=== PATIENT | female | born 1960 | race Caucasian/White ===

== ENCOUNTER 2019-10-13 00:17 | Outpatient (CLI) | payer BC, SELFPAY ==
[2019-10-13 18:58] LABS: SARS-CoV-2 RNA PCR Negative
== END 2019-10-13 00:18 | disposition home or self-care (01) ==
LOC: ANHCOVIDDT 00:18
PROVIDERS: PCP Family Medicine; Visit Provider Otolaryngology
DX: Z01.818 Encounter for other preprocedural examination (principal); Z11.59 Encounter for screening for other viral diseases
CPT/HCPCS: 87635; C9803; U0003

== ENCOUNTER 2019-10-15 05:27 | Day surgery (SDC) | payer BC, SELFPAY ==
[2019-10-09 10:20] VITALS: BMI 29.2
--- NOTE | 2019-10-14 09:57 | PM.HPGS ---
History of Present Illness History of Present Illness Consent: Risks, benefits, and alternatives have been discussed and questions answered. Patient agrees to proceed with procedure. Chief complaint: mucocele inside lower lip Narrative: Rebeca Ivory is a 58 year old female Review of Systems Review of Systems: Narrative: Review of systems is all unremarkable chest heart lungs extremities all normal ENT shows a small cyst in the lower lip All systems reviewed & are unremarkable except as noted in HPI and below PMFSH Social History Social History Smoking status: Never smoker Tobacco type: cigarettes Second hand tobacco smoke exposure: No Alcohol intake: never Substance use: never Substance use type: does not use Gender identity (if verbalized by the patient): Female Meds Home Medications and Allergies Home Medications Medication Instructions Recorded Confirmed Type levothyroxine 150 mcg tablet 150 mcg PO QAM #90 tablet 08/25/19 10/09/19 Rx sertraline 100 mg tablet 100 mg PO DAILY #90 tablet 08/25/19 10/09/19 Rx famotidine 40 mg tablet 40 mg PO DAILY 09/23/19 10/09/19 History Allergies Allergy/AdvReac Type Severity Reaction Status Date / Time No Known Allergies Allergy Verified 10/09/19 10:21
--- NOTE | 2019-10-15 06:21 | WPDHPUPDATE1 ---
History and Physical Update Update Date/Time: 10/15/19 06:21 History and Physical has been reviewed, including an updated exam of the patient. There are NO changes in the patient's condition. Risks, benefits, and alternatives have been discussed and questions answered. Patient agrees to proceed with procedure.
[2019-10-15 06:37] VITALS: BP 98/57; PULSE 53; RESP 16; O2SAT 97
[2019-10-15 07:29] VITALS: BP 109/72; PULSE 66; RESP 16; O2SAT 95
[2019-10-15 07:35] VITALS: BP 103/69; PULSE 69; RESP 15; O2SAT 94
[2019-10-15] MEDS: LIDO 1%/EPINEPHRINE 1:100,000 20 ML VIAL INFILTRATE (07:38)
--- NOTE | 2019-10-15 07:40 | PM.PROC ---
Procedure Note - Detailed Date of procedure: 10/15/19 Pre-op diagnosis: mucocele inside lower lip Post-op diagnosis: same Description of procedure: Patient was prepped and draped in fashion general anesthesia injected 1% xylocaine 1-1000 epinephrine elliptical incision made around the prominence of the lower mucocele in the Le lateral aspect of the lower lip was excised hemostasis was obtained electrocautery and closed with interrupted 5 0 chromic Anesthesia: local Surgeon: Asad Knutson MD Estimated blood loss (mL): 5.0 Drains: No Packing: No Pathology: yes Complications: No immediate complications Condition: stable Disposition: same day
[2019-10-15 07:45] VITALS: BP 109/68; PULSE 55; RESP 14
== END 2019-10-15 08:11 | disposition home or self-care (01) ==
PROVIDERS: PCP Family Medicine; Visit Provider Otolaryngology
PROC: (CPT 40810; principal; 2019-10-15 07:30)
DX: K13.79 Other lesions of oral mucosa (principal); K21.9 Gastro-esophageal reflux disease without esophagitis; E03.9 Hypothyroidism, unspecified
CPT/HCPCS: 40812; 88304

== ENCOUNTER 2020-11-19 10:01 | Emergency (ER) | payer BC, SELFPAY ==
--- NOTE | ~2020-11-19 | XR_ITS ---
EXAMINATION: XR chest 2V DATE: 11/19/2020 10:27 INDICATION: Cough TECHNIQUE: PA and lateral views of the chest are obtained. COMPARISON: 11/19/2012 FINDINGS: There are minimal airspace opacities of the left lower lobe. There is no pleural effusion o r pneumothorax. The cardiomediastinal silhouette is normal. There is moderate thoracic spondylosis. IMPRESSION: 1. Left lower lobe airspace opacities, consistent with atelectasis versus pneumonia. Reviewed, dictated and finalized at location A. IMPRESSION: 1. Left lower lobe airspace opacities, consistent with atelectasis versus pneum onia.
--- NOTE | 2020-11-19 10:04 | ED.GENADULT ---
HPI - General Adult General Chief complaint: Upper Respiratory Infection Stated complaint: COUGH Time Seen by Provider: 11/19/20 10:04 Source: patient Mode of arrival: ambulatory Limitations: no limitations History of Present Illness HPI narrative: 59-year-old female patient presents to the [facility] with complaints of a cough since this past Saturday, and 4 days. Patient denies any fevers, sore throat, runny nose, congestion or any other concerning symptoms at this time. Patient states she does feel a little heaviness in the chest. Patient states that her granddaughter was recently diagnosed with RSV on Saturday after she had babysat her on the previous Saturday. Patient states she is fully vaccinated against COVID-19. Denies any history of smoking. Related Data Allergies Allergy/AdvReac Type Severity Reaction Status Date / Time No Known Allergies Allergy Verified 11/19/20 10:07 Review of Systems Review of Systems: Narrative: CONSTITUTIONAL: Denies fever, chills, or sweats. EYES: Denies visual changes, redness, or discharge. ENT: Denies rhinorrhea, congestion, sore throat, or otalgia. CARDIOVASCULAR: Denies chest pain, palpitations, or edema. RESPIRATORY: Positive cough with intermittent dyspnea. Positive chest heaviness GASTROINTESTINAL: Denies abdominal pain, nausea, vomiting, or diarrhea. GENITOURINARY: Denies dysuria or hematuria. SKIN: Denies rash or itching. MUSCULOSKELETAL: Denies back pain, joint pain, or myalgia. NEUROLOGIC: Denies headache, numbness, or weakness. PSYCHIATRIC: Denies anxiety or depression. [facility] Past Medical History Medical History (Updated 11/19/20 @ 11:04 by MERCEDES Pickard) Anxiety Depression GERD without esophagitis Hypothyroidism (acquired) Insomnia Thyroid disease Unspecified osteoarthritis, unspecified site Surgical History Surgical History History of vaginal hysterectomy 2001 Family History Family History Father Family history of malignant neoplasm of brain, Onset Age: 72 Social History Social History Smoking status: Never smoker Tobacco type: cigarettes Second hand tobacco smoke exposure: No Alcohol intake: never Alcohol use details: consumes 2 beers or glasses of wine occasionally Substance use: never Substance use type: does not use Gender identity (if verbalized by the patient): Female Comments At the time of my signature I agree with nursing past medical history, surgical, social, and family history. There is no relevant family history pertinent to the presenting complaint. Exam Narrative: Exam Narrative: GENERAL: Well-appearing, well-nourished, and in no acute distress. HEAD: Normocephalic, atraumatic. EYES: PERRLA and EOMI. ENT: Nares clear, no rhinorrhea or epistaxis. Mucous membranes moist. NECK: Supple. No lymphadenopathy CHEST: Calling has some decreased lung sounds noted to the right lower lobe on auscultation. No respiratory distress. Patient has a continuous cough noted during exam, dry cough noted no production. HEART: Regular rate and rhythm. No murmur heard. Normal peripheral pulses. ABDOMEN: Soft, nontender, nondistended, normal active bowel sounds. EXTREMITIES: Normal range of motion. No edema. SKIN: Warm, dry, no rash. NEURO: No focal deficits. Alert and oriented x3. Course Reevaluation(s) Reevaluation #1: Reevaluated patient notified her that her x-ray does show some atelectasis versus pneumonia to the left lower lobe. We will go ahead and treat her for pneumonia today with a Z-Josesito, albuterol inhaler and oral steroids to help with the coughing. Discussed with patient that her Covid test today is negative however we will send the PCR to the lab just to be certain. Discussed with patient that she can take any Tylenol, ibuprofen as needed for any pain or fevers. B
[2020-11-19 10:06] VITALS: BP 124/76; PULSE 64; RESP 16; TEMP 36.6; O2SAT 99
[2020-11-19] MEDS: ALBUTEROL SULFATE NEB 2.5 MG/3 ML INH INHALATION (10:40)
[2020-11-19] MEDS: IPRATROPIUM BR 0.02% INH SOLN 0.5 MG/2.5 ML VIAL INHALATION (10:40)
[2020-11-21 20:38] LABS: SARS-CoV-2 RNA PCR Negative
== END 2020-11-19 11:20 | disposition home or self-care (01) ==
PROVIDERS: Emergency Provider Nurse Practitioner Family; PCP Family Medicine
DX: J18.9 Pneumonia, unspecified organism (principal); Z20.822 Contact with and (suspected) exposure to COVID-19; F41.9 Anxiety disorder, unspecified; F32.9 Major depressive disorder, single episode, unspecified; K21.9 Gastro-esophageal reflux disease without esophagitis; E03.9 Hypothyroidism, unspecified; M19.90 Unspecified osteoarthritis, unspecified site
CPT/HCPCS: 71046; 87426; 94640; 99213; C9803; G0463; U0003; U0005

== ENCOUNTER 2022-03-14 08:35 | Emergency (ER) | payer OTHER, BC, SELFPAY ==
[2022-03-14 08:56] VITALS: BP 103/69; PULSE 57; RESP 16; TEMP 37.1; O2SAT 97
--- NOTE | 2022-03-14 08:58 | ED.URI ---
HPI - URI/Sore Throat General Chief Complaint: Upper Respiratory Infection Stated Complaint: URI Time Seen by Provider: 03/14/22 08:38 Source: patient Mode of arrival: ambulatory Limitations: no limitations History of Present Illness HPI Narrative: 61-year-old female presents with complaint cough, congestion, sore throat for 4 days. States that she felt like she had fever 1st day of symptoms but did not check her temperature. Denies chest pain and shortness of breath. Denies nausea vomiting diarrhea. Taking NyQuil to treat symptoms. At home COVID test on Saturday that was negative. Is concerned that she did that test too early. Would like another test. Systems reviewed and negative except as noted above. Related Data Allergies Allergy/AdvReac Type Severity Reaction Status Date / Time No Known Allergies Allergy Verified 03/14/22 09:18 Review of Systems Review of Systems: CONSTITUTIONAL: Denies fever, chills, or sweats. EYES: Denies visual changes, redness, or discharge. ENT: Reports rhinorrhea, congestion, sore throat, or otalgia. CARDIOVASCULAR: Denies chest pain, palpitations, or edema. RESPIRATORY: Reports cough. Denies dyspnea. GASTROINTESTINAL: Denies abdominal pain, nausea, vomiting, or diarrhea. GENITOURINARY: Denies dysuria or hematuria. SKIN: Denies rash or itching. MUSCULOSKELETAL: Denies back pain, joint pain, or myalgia. NEUROLOGIC: Denies headache, numbness, or weakness. PSYCHIATRIC: Denies anxiety or depression. All other systems reviewed are negative, except as documented in HPI. [facility] Past Medical History Medical History (Updated 03/14/22 @ 09:28 by Yusra Oden NP) Anxiety Depression GERD without esophagitis Hypothyroidism (acquired) Insomnia Thyroid disease Unspecified osteoarthritis, unspecified site Surgical History Surgical History History of vaginal hysterectomy 2001 Family History Family History Father Family history of malignant neoplasm of brain, Onset Age: 72 Social History Social History Smoking status: Never smoker Tobacco type: cigarettes Second hand tobacco smoke exposure: No Alcohol intake: never Alcohol use details: consumes 2 beers or glasses of wine occasionally Substance use: never Substance use type: does not use Gender identity (if verbalized by the patient): Female Comments At time of signature, agree with nursing past medical, surgical, social and family history. There is no relevant family history pertinent to the presenting complaint. Exam Narrative: GENERAL: This is a well-nourished, well-developed patient, in no apparent distress. HEAD: normocephalic, atraumatic. EYES: PERRL. Sclera clear/white. Vision is grossly intact. EARS: External ears normal, auditory canals clear and without drainage, TMs normal without perforation. Hearing grossly intact. NOSE: External nose normal with clear nasal drainage. No erythema or swelling to nares. THROAT: Mucous membranes moist, posterior pharynx clear. NECK: Neck supple, non-tender without lymphadenopathy, masses or thyromegaly. CARDIOVASCULAR: Regular rate and rhythm without murmurs, gallops, or rubs. RESPIRATORY: Clear to auscultation. Breath sounds equal bilaterally. No wheezes, rales, or rhonchi. SKIN: warm, Dry, intact with no suspicious lesions or rash, good texture and turgor. NEURO: awake, alert, and oriented to person, place and time. There were no obvious focal neurologic abnormalities. EXTREMITIES: No joint tenderness, effusion, or edema noted. Course Course Level of Care: Express Care Visit Vital Signs Vital signs: Vital Signs Temperature 37.1 C 03/14/22 08:56 Pulse Rate 57 L 03/14/22 08:56 Respiratory Rate 16 03/14/22 08:56 Blood Pressure 103/69 03/14/22 08:56 Pulse Oximetry 97 03/14/22
== END 2022-03-14 09:32 | disposition home or self-care (01) ==
PROVIDERS: Emergency Provider Nurse Practitioner Family; PCP Family Medicine
DX: J06.9 Acute upper respiratory infection, unspecified (principal); E03.9 Hypothyroidism, unspecified; Z20.822 Contact with and (suspected) exposure to COVID-19
CPT/HCPCS: 87426; 87804; 99213; C9803; G0463

== ENCOUNTER 2022-09-20 08:00 | Outpatient (CLI) | payer BC, SELFPAY ==
[2022-09-20 19:10] LABS: Alanine Aminotransferase 17 U/L (6-35); Alkaline Phosphatase 83 U/L (38-126); Anion Gap 4 mmol/L (8-16); Aspartate Amino Transferase 33 U/L (14-36); Bilirubin,Total 0.5 mg/dL (0.2-1.3); Blood Urea Nitrogen 18 mg/dL (7-17); Calcium 8.5 mg/dL (8.4-10.2); Carbon Dioxide 31 mmol/L (22-30); Chloride 105 mmol/L (98-107); Cholesterol 174 mg/dL (0-200); Estimated Glomerular Filt Rate > 60; Glucose 62 mg/dL (65-110); HDL Direct 58 mg/dL; Potassium 4.5 mmol/L (3.4-5.0); Sodium 140 mmol/L (137-145); Triglycerides 57 mg/dL (<150)
[2022-09-20 19:21] LABS: LDL Cholesterol Direct 94 mg/dL
[2022-09-20 19:58] LABS: Vitamin D 25 Hydroxy 32.9 ng/mL
[2022-09-20 20:08] LABS: Basophils Percent Auto 0.6 % (0.2-1.2); Eosinophils Absolute Auto 0.5 K/mm3 (0-0.3); Eosinophils Percent Auto 7.5 % (0-4.4); Hematocrit 42.4 % (37.0-47.0); Hemoglobin 13.1 g/dL (12.0-15.0); Immature Granulocyte Absolute 0.03 K/mm3 (0.00-0.031); Immature Granulocyte Percent A 0.5 % (0-0.5); Lymphocytes Absolute Auto 0.97 K/mm3 (0.9-3.2); Lymphocytes Percent Auto 14.8 % (18.3-44.2); Mean Corpuscular HGB Conc 30.9 g/dl (32-36); Mean Corpuscular Hemoglobin 30.2 pg (26-34); Mean Corpuscular Volume 97.7 fl (80-100); Mean Platelet Volume 10.8 fl (7.4-10.4); Monocytes Absolute Auto 0.5 K/mm3 (0.1-0.6); Monocytes Percent Auto 8.3 % (2.6-8.5); Neutrophils Absolute Auto 4.5 K/mm3 (1.3-6.7); Neutrophils Percent Auto 68.3 % (45.5-73.1); Platelet Count Result 211 k/mm3 (150-375); Red Blood Count 4.34 M/mm3 (4.2-5.4); Red Cell Distribution Width 14.6 % (11.5-14.5); White Blood Count 6.5 K/mm3 (4.5-10.0)
== END 2022-09-20 08:01 | disposition home or self-care (01) ==
LOC: ANHGOSHLAB 08:01
PROVIDERS: PCP Family Medicine; Visit Provider Family Medicine
DX: F32.9 Major depressive disorder, single episode, unspecified (principal); E78.5 Hyperlipidemia, unspecified; E53.8 Deficiency of other specified B group vitamins; E55.9 Vitamin D deficiency, unspecified; E03.9 Hypothyroidism, unspecified; G47.00 Insomnia, unspecified
CPT/HCPCS: 36415; 80053; 80061; 82306; 82607; 84443; 85025

== ENCOUNTER → 2022-09-24 11:42 | Outpatient (CLI) | payer BC, SELFPAY ==
--- NOTE | ~2022-09-24 | XR_ITS ---
EXAMINATION: XR hip BI 2V w AP pelvis DATE: 09/24/2022 12:12 INDICATION: Right hip pain. TECHNIQUE: An anteroposterior view of the pelvis and 2 views of each hip were obtained. COMPARISON: Hip radiographs 01/04/2011 FINDINGS: Bone alignment is normal. No fracture. The hip joint spaces are normal. There is severe low er lumbar spondylosis. IMPRESSION: 1. Normal hips. Reviewed, dictated and finalized at location A. IMPRESSION: 1. Normal hips.
== END ==
PROVIDERS: PCP Family Medicine; Visit Provider Family Medicine
DX: M25.551 Pain in right hip (principal); M25.552 Pain in left hip
CPT/HCPCS: 73521

== ENCOUNTER 2022-10-26 15:02 | Emergency (ER) | payer BC, SELFPAY ==
[2022-10-26 15:09] VITALS: BP 119/74; PULSE 60; RESP 16; TEMP 36.7; O2SAT 97
--- NOTE | 2022-10-26 15:13 | ED.EAR ---
HPI - Ear Problem General Chief complaint: Ear Stated complaint: ear pain that runs to teeth Time Seen by Provider: 10/26/22 15:10 Source: patient Mode of arrival: ambulatory Limitations: no limitations History of Present Illness HPI Narrative: Alan is a 61-year-old female patient presenting to the clinic today with complaints of right ear pain and congestion. She reports this has been going on for 3 days. States she is having ear throbbing and it feels as though there is pressure in her teeth. Related Data Allergies Allergy/AdvReac Type Severity Reaction Status Date / Time No Known Allergies Allergy Verified 09/19/22 14:52 Review of Systems Review of Systems: Pertinent positives per HPI. Patient denies any fever, chills, rash, headache, visual changes, dizziness, cough, shortness of breath, chest pain, palpitations, nausea, vomiting, diarrhea, constipation, abdominal pain, or any urinary issues. PMF Past Medical History Medical History Anxiety Depression GERD without esophagitis Hypothyroidism (acquired) Insomnia Obesity Thyroid disease Unspecified osteoarthritis, unspecified site Varicose veins of right lower extremity without ulcer or inflammation Vitamin D deficiency Surgical History Surgical History History of vaginal hysterectomy 2001 Family History Family History Father Family history of malignant neoplasm of brain, Onset Age: 72 Social History Social History Smoking status: Never smoker Tobacco type: cigarettes Second hand tobacco smoke exposure: No Alcohol intake: current Alcohol use details: consumes 2 beers or glasses of wine occasionally Substance use: never Substance use type: does not use Gender identity (if verbalized by the patient): Female Comments At the time of my signature, I reviewed and agree with the nursing past medical, surgical, social, and family history. There is no relevant family history pertinent to the patient complaint. Exam Narrative: General: Well-developed, well nourished, in no apparent distress Head: Normocephalic, atraumatic Eyes: Pupils equally round and reactive to light bilaterally, EOM intact, sclera and conjunctive clear, no discharge, lids normal Ears: Left TM intact and clear, right TM intact, mild bulging, and opaque, ear canals clear, no drainage, grossly hearing normal. Nose: Nares patent, clear discharge, no inflammation, no sinus tenderness. Mouth: Oral pharynx without lesions or masses, good dentition, MMM. Neck: Supple, trachea midline, no enlargement of anterior or posterior cervical nodes, no thyroid masses or goiter palpable. Cardio: Regular rate and rhythm, s1 and s2 normal, no murmur appreciated. Resp: Clear to auscultation bilaterally, no rhonchi, rales, wheezing or rubs Course Course Emergency Course: Portions of this record may have been created with voice recognition software. Level of Care: Express Care Visit Vital Signs Vital signs: Vital Signs Temperature 36.7 C 10/26/22 15:09 Pulse Rate 60 10/26/22 15:09 Respiratory Rate 16 10/26/22 15:09 Blood Pressure 119/74 10/26/22 15:09 Pulse Oximetry 97 10/26/22 15:09 Temperature 36.7 C 10/26/22 15:09 Pulse Rate 60 10/26/22 15:09 Respiratory Rate 16 10/26/22 15:09 Blood Pressure 119/74 10/26/22 15:09 Pulse Oximetry 97 10/26/22 15:09 Vital signs reviewed Medical Decision Making MDM Narrative Medical decision making narrative: At the time of visit patient is resting on the exam table. I suspect patient has right sided eustachian tube dysfunction. Prescription for prednisone was sent to the pharmacy and supportive measures were discussed with the patient and she voiced understanding of t
== END 2022-10-26 15:21 | disposition home or self-care (01) ==
PROVIDERS: Emergency Provider Nurse Practitioner Family; PCP Family Medicine
DX: H69.91 Unspecified Eustachian tube disorder, right ear (principal); K21.9 Gastro-esophageal reflux disease without esophagitis; E03.9 Hypothyroidism, unspecified; E66.9 Obesity, unspecified; Z68.28 Body mass index [BMI] 28.0-28.9, adult; M19.90 Unspecified osteoarthritis, unspecified site; E55.9 Vitamin D deficiency, unspecified
CPT/HCPCS: 99213; G0463

== ENCOUNTER 2022-11-28 08:14 | Emergency (ER) | payer OTHER, SELFPAY ==
--- NOTE | ~2022-11-28 | XR_ITS ---
EXAMINATION: XR foot LT min 3V DATE: 11/28/2022 08:46 INDICATION: Pain and bruising at the great toe of the left foot post fall TECHNIQUE: Dorsoplantar, two oblique and lateral views of the left foot were obtained. COMPARISON: None. FINDINGS: Nondisplaced small intra-articular avulsion fracture across the medial base of the left first proxima l phalanx. Alignment remains essentially anatomic with no significant fracture gap or step-off at the articular surface. No other fractures identified. Mild polyarticular osteoarthritis at the first met atarsophalangeal and a few of the tarsometatarsal and interphalangeal joints. IMPRESSION: 1. Nondisplaced intra-articular avulsion fracture at the medial base of the left first proximal phala nx. Reviewed, dictated and finalized at location A. IMPRESSION: 1. Nondisplaced intra-articular avulsion fracture at the medial base of the lef t first proximal phalanx.
--- NOTE | 2022-11-28 08:17 | ED.LOWEXIN ---
HPI - Extremity Injury (Lower) General Chief Complaint: Extremity Injury, Lower Stated Complaint: Fall at work; injury to left foot Time Seen by Provider: 11/28/22 08:16 Source: patient Mode of arrival: ambulatory Limitations: no limitations History of Present Illness HPI Narrative: Rebeca is a 62 year old female patient presenting to the clinic today with c/o left foot pain/injury after falling at work. She reports she was trying to step over some items at work and tripped and fell. States is having pain to her left great toe with bruising and swelling. Is unable to flex or extend her great toe due to pain. Related Data Allergies Allergy/AdvReac Type Severity Reaction Status Date / Time No Known Allergies Allergy Verified 11/28/22 08:34 Review of Systems Review of Systems: Pertinent positives per HPI. Patient denies any fever, chills, rash, headache, visual changes, dizziness, cough, runny nose, sore throat, shortness of breath, chest pain, palpitations, nausea, vomiting, diarrhea, constipation, abdominal pain, or any urinary issues. PMFSH Past Medical History Medical History Anxiety Depression GERD without esophagitis Hypothyroidism (acquired) Insomnia Obesity Thyroid disease Unspecified osteoarthritis, unspecified site Varicose veins of right lower extremity without ulcer or inflammation Vitamin D deficiency Surgical History Surgical History History of vaginal hysterectomy 2001 Family History Family History Father Family history of malignant neoplasm of brain, Onset Age: 72 Social History Social History Smoking status: Never smoker Tobacco type: cigarettes Second hand tobacco smoke exposure: No Alcohol intake: current Alcohol use details: consumes 2 beers or glasses of wine occasionally Substance use: never Substance use type: does not use Gender identity (if verbalized by the patient): Female Comments At the time of my signature, I reviewed and agree with the nursing past medical, surgical, social, and family history. There is no relevant family history pertinent to the patient complaint. Exam Narrative: General: Well-developed, well nourished, in no apparent distress Head: Normocephalic, atraumatic. Cardio: Regular rate and rhythm, s1 and s2 normal, no murmur appreciated. Resp: Clear to auscultation bilaterally, no rhonchi, rales, wheezing or rubs. Musculoskeletal: No deformity, moderate swelling and bruising to the medial left great toe,tender to palpation over this area, limited range of motion due to pain and swelling, muscle strength strong and equal, peripheral pulse strong, no cyanosis, normal gait and station Course Course Emergency Course: Portions of this record may have been created with voice recognition software. Level of Care: Express Care Visit Vital Signs Vital signs: Vital signs reviewed MDM - Extremity Injury (Lower) MDM Narrative Medical decision making narrative: At the time of visit patient is resting comfortably on the exam table. X-ray of the left foot was performed and shows that she has a nondisplaced intra-articular avulsion fracture of the left proximal medial great toe. Differential Diagnosis Differential diagnosis: Likely ankle sprain and strain, fracture of toe, ankle fracture and other (Foot fracture, foot strain, foot contusion,toe sprain) Imaging Data Radiologist's impression: Close Foot X-Ray (Signed) Jean Carlos Gonzalez - 11/28/22 [facility] [address] [place] [address] XRay Report Signed Patient: Rebeca Ivory : 1960 MR#: [id number] Age/Sex: 62 / F Acct:[id number] Loc: [facility]
[2022-11-28 08:29] VITALS: BP 115/74; PULSE 58; RESP 16; TEMP 36.4; O2SAT 100
--- NOTE | 2022-11-28 09:15 | PC.NURSE ---
+PMS POST SHOE APPLICATION
== END 2022-11-28 09:05 | disposition home or self-care (01) ==
PROVIDERS: Emergency Provider Nurse Practitioner Family; PCP Family Medicine
DX: S92.415A Nondisplaced fracture of proximal phalanx of left great toe, initial encounter for closed fracture (principal); W01.0XXA Fall on same level from slipping, tripping and stumbling without subsequent striking against object, initial encounter; K21.9 Gastro-esophageal reflux disease without esophagitis; E03.9 Hypothyroidism, unspecified; E66.9 Obesity, unspecified; Z68.27 Body mass index [BMI] 27.0-27.9, adult; M19.90 Unspecified osteoarthritis, unspecified site; I83.91 Asymptomatic varicose veins of right lower extremity; F32.A Depression, unspecified
CPT/HCPCS: 73630; 99214; G0463

== ENCOUNTER 2023-04-04 08:12 | Outpatient (CLI) | payer BC, SELFPAY ==
--- NOTE | ~2023-04-04 | MM_ITS ---
EXAMINATION: MM screening janessa BI w renetta HISTORY: Screening mammogram TECHNIQUE: Craniocaudal and mediolateral oblique 3-D tomosynthesis images were obtained and synthetic 2-D images were generated. CAD analysis was submitted and interpreted. COMPARISON: No prior mammogram is available for comparison at this institution. BREAST PARENCHYMAL COMPOSITION: The breasts are almost entirely fatty. FINDINGS: There is no evidence of suspicious mass, calcification, or architectural distortion to sugg est malignancy in either breast. There has been no suspicious interval change. IMPRESSION: 1. No mammographic evidence of malignancy. 2. Recommend routine screening mammography in one year. BI-RADS Category 1: Negative Reviewed, dictated and finalized at location A. [employer]
--- NOTE | ~2023-04-04 | DEXA_ITS ---
Bone Density Report Name: HERMINIA MANCINI Age: 62 Sex: Female Ethnicity: White Date of : 1960 Indication: postmenopausal; screening for osteoporosis; hysterectomy; rheumatoid arthritis; Referring Provider: KAITLYN MARIA Study: Bone densitometry was performed. Exam Date: April 04, 2023 Accession number: [id number] Bone Density: Region BMD T-score Z-score Classification AP Spine(L1-L4) 0.799 -2.3 -0.5 Osteopenia Femoral Neck (Left) 0.627 -2.0 -0.5 Osteopenia Total Hip (Left) 0.793 -1.2 0.0 Osteopenia Femoral Neck (Right) 0.678 -1.5 -0.1 Osteopenia Total Hip (Right) 0.835 -0.9 0.3 Normal Total Hip Mean 0.814 -1.1 0.2 Osteopenia World Health Organization criteria for BMD impression classify patients as: Normal (T-score at or above -1.0), Osteopenia (T-score between -1.0 and -2.5), or Osteoporosis (T-score at or below -2.5). 10-year Fracture Risk(1): Major Osteoporotic Fracture 13% Hip Fracture 2.0% Reported Risk Factors: [place] (), Neck BMD=0.627, BMI=27.8, rheumatoid arthritis (1) FRAX(R) Version 3.08. Fracture probability calculated for an untreated patient. Fracture probability may be lower if the patient has received treatment. Clinical Information Provided by Patient: Has rheumatoid arthritis Has the following medical conditions: Hysterectomy Patient maximum height was 71 Menopause Age: 36 No regular weight bearing exercise Drinks caffeinated beverages Onset of menses at age 12 Number of children 2 Impression: The patient has low bone mass, based on the Total Spine T-score. The patient has an estimated ten-year risk of hip fracture of 2% and an estimated ten-year risk of major fracture of 13%, based on the WHO FRAX algorithm. Discussion: BONE DENSITY IS LOW AT ONE OR MORE SKELETAL SITES. This patient's lowest T-score is low at one or more skeletal sites. It meets the World Health Organization's (WHO) criteria for ?low bone mass? (T-score between -1.0 and -2.5). The patient's 10-year risk of fracture as calculated by FRAX is less than the threshold where pharmacological therapy is recommended by the National Osteoporosis Foundation (NOF). However, all treatment decisions require clinical judgment and consideration of individual patient factors, including patient preferences, comorbidities, previous drug use, risk factors not captured in the FRAX model (e.g., frailty, falls, vitamin D deficiency, increased bone turnover, interval significant decline in bone density) and possible under or overestimation of fracture risk by FRAX. The patient should follow a healthful lifestyle (good nutrition with adequate calcium and vitamin D, and appropriate weight-bearing exercise). Follow-Up: Consider repeating this study in 2 to 3 years to reassess this patient's st
== END 2023-04-04 08:13 | disposition home or self-care (01) ==
LOC: ANHIMG 08:14
PROVIDERS: PCP Family Medicine; Visit Provider Family Medicine
DX: Z12.31 Encounter for screening mammogram for malignant neoplasm of breast (principal); Z78.0 Asymptomatic menopausal state; M85.88 Other specified disorders of bone density and structure, other site; M85.852 Other specified disorders of bone density and structure, left thigh; M85.851 Other specified disorders of bone density and structure, right thigh
CPT/HCPCS: 77063; 77067; 77080

== ENCOUNTER 2023-09-02 08:02 | Emergency (ER) | payer BC, SELFPAY ==
--- NOTE | ~2023-09-02 | XR_ITS ---
Left ankle Technique: AP, oblique, and lateral views were obtained. Clinical History: Pain Findings: No acute fracture or dislocation is seen. Osseous alignment is anatomic. Ankle mortise and other visualized joint spaces are preserved. Soft tissues are otherwise unremarkable. Impression: Unremarkable left ankle. Reviewed, dictated and finalized at location . Impression: Unremarkable left ankle.
--- NOTE | 2023-09-02 08:07 | ED.LOWEXIN ---
HPI - Extremity Injury (Lower) General Chief Complaint: Extremity Problem,Nontraumatic Stated Complaint: Ankle Pain Time Seen by Provider: 09/02/23 08:15 Source: patient, RN notes reviewed and old records reviewed Mode of arrival: ambulatory Limitations: no limitations History of Present Illness HPI Narrative: 62-year-old female presents to the [facility] with complaints left medial ankle pain for 10 days. Patient denies any injury. Does have a contusion to the medial aspect lower leg just above the ankle. Unknown injury. On able to reproduce pain with palpation. Patient states it hurts when she walks. Has taken ibuprofen. Onset (ago): day(s) (10) Treatments prior to arrival: NSAIDS Related Data Allergies Allergy/AdvReac Type Severity Reaction Status Date / Time No Known Allergies Allergy Verified 09/02/23 08:31 Review of Systems Review of Systems: All systems reviewed & are unremarkable except as noted in HPI and below Constitutional: Constitutional: Reports no additional constitutional complaints ENT: Reports system reviewed and no additional complaints, except as documented Cardiovascular: Cardiovascular: Reports no additional cardiovascular complaints, Denies chest pain and Denies dyspnea Respiratory: Respiratory: Reports no additional respiratory complaints, Denies chest congestion, Denies cough and Denies dyspnea Gastrointestinal: Gastrointestinal: Reports no additional gastrointestinal complaints, Denies abdominal pain, Denies nausea and Denies vomiting Musculoskeletal: Musculoskeletal: Reports as per HPI, Reports arthralgias (Left medial ankle), Denies joint swelling and Denies numbness Integumentary/Breasts: Skin/Breast: Reports system reviewed and no additional complaints, except as docu Neurologic: Reports system reviewed and no additional complaints, except as documented Psychiatric: Psychiatric: Reports no additional psychiatric complaints Allergic/Immunologic: Allergic/Immunologic: Reports no additional allergic/immunologic complaints [facility] Past Medical History Medical History Anxiety Contusion of left patella Depression GERD without esophagitis Hypothyroidism (acquired) Insomnia Obesity Sprain of left knee Thyroid disease Unspecified osteoarthritis, unspecified site Varicose veins of right lower extremity without ulcer or inflammation Vitamin D deficiency Surgical History Surgical History History of vaginal hysterectomy 2002 Family History Family History Father Family history of malignant neoplasm of brain, Onset Age: 72 Social History Social History Smoking status: Never smoker Tobacco type: cigarettes Second hand tobacco smoke exposure: No Alcohol intake: current Alcohol use details: consumes 2 beers or glasses of wine occasionally Substance use: never Substance use type: does not use Gender identity (if verbalized by the patient): Female Comments At the time of my signature, I reviewed and agree with the nursing past medical, surgical, social, and family history. There is no relevant family history pertinent to the patient complaint. Exam Const: General: cooperative, healthy appearing, comfortable, no acute distress, well developed, alert and well nourished Nutritional Appearance: well nourished Orientation/consciousness: patient oriented x3 Limitations: no limitations HENMT: Head: normal to inspection Ears: hearing grossly normal bilaterally and external ears normal Face/Nose/Sinus: Normal external nose present, Normal nares present, Normal nasal mucous membranes and turbinates present, normal facial exam and face symmetric Face and sinus: normal facial exam and face symmetric Eyes: General: appearance normal, both eyes and all related str
[2023-09-02 08:13] VITALS: BP 111/78; PULSE 56; RESP 16; TEMP 36.4; O2SAT 100
== END 2023-09-02 08:50 | disposition home or self-care (01) ==
PROVIDERS: Emergency Provider Nurse Practitioner; PCP Family Medicine
DX: S93.402A Sprain of unspecified ligament of left ankle, initial encounter (principal); X58.XXXA Exposure to other specified factors, initial encounter; K21.00 Gastro-esophageal reflux disease with esophagitis, without bleeding; E03.9 Hypothyroidism, unspecified; E66.9 Obesity, unspecified; Z68.30 Body mass index [BMI] 30.0-30.9, adult; M19.90 Unspecified osteoarthritis, unspecified site; F41.9 Anxiety disorder, unspecified; F32.A Depression, unspecified
CPT/HCPCS: 73610; 99213; G0463

== ENCOUNTER 2024-05-20 10:58 | Emergency (ER) | payer BC, SELFPAY ==
[2024-05-20 11:09] VITALS: BP 120/69; PULSE 70; RESP 16; TEMP 36.2; O2SAT 100
--- NOTE | 2024-05-20 11:13 | ED_ITS ---
HPI - URI/Sore Throat General Chief Complaint: Upper Respiratory Infection Stated Complaint: COUGH/CONGESTION/BODY ACHES Source: patient and RN notes reviewed Mode of arrival: ambulatory Limitations: no limitations History of Present Illness HPI Narrative: 63 y/o female presented for c/o cough, headache, ear pressure, body aches, sinus pressure/congestion. Symptom onset 10 days ago, then improved until the last few days. Cough worsened last night. Taking Nyquil. Denies sob, wheezing, n/v/d. MD elicited complaint: cough Related Data Home Medications ?Medication ?Instructions ?Recorded ?Confirmed ?Last Taken ?Type cholecalciferol (vitamin D3) 1,250 05/20/24 Unknown History mcg (50,000 unit) capsule Allergies Allergy/AdvReac Type Severity Reaction Status Date / Time No Known Allergies Allergy Verified 05/20/24 11:07 Review of Systems Review of Systems: CONSTITUTIONAL: denies malaise, chills, sweats, fever EYES: Denies visual changes, redness, or discharge ENT: Reports rhinorrhea, congestion, sinus pain, otalgia, sore throat CARDIOVASCULAR: Denies chest pain, palpitations, edema RESPIRATORY: Reports cough, post nasal drainage. Denies dyspnea GASTROINTESTINAL: Denies abdominal pain, nausea, vomiting, diarrhea SKIN: Denies rash MUSCULOSKELETAL: Endorses myalgia NEUROLOGIC: endorses headache PMFSH Past Medical History Medical History Osteopenia Contusion of left patella Obesity Varicose veins of right lower extremity without ulcer or inflammation Vitamin D deficiency Hypothyroidism (acquired) Unspecified osteoarthritis, unspecified site Depression GERD without esophagitis Anxiety Insomnia Surgical History Surgical History History of vaginal hysterectomy (~2001) 2001 Family History Family History Father Family history of malignant neoplasm of brain, Onset Age: 72 Social History Social History Smoking status: Never smoker Tobacco type: cigarettes Second hand tobacco smoke exposure: No Alcohol intake: current Alcohol use details: consumes 2 beers or glasses of wine occasionally Substance use: never Substance use type: does not use Gender identity (if verbalized by the patient): Female Exam Narrative: GENERAL: mildly Ill-appearing, nontoxic no acute distress. EYES: PERRLA, conjunctivae clear ENT: Mucous membranes moist. TM pearly salmeron with dull light reflex bilaterally; no tragal tenderness. Oropharynx not erythematous without lesions or exudate, no drooling, no hoarseness, no trismus, uvula midline. No tripod positioning, muffled voice, soft palate or pharyngeal wall bulging NECK: Supple. No lymphadenopathy CHEST: Clear to auscultation, breath sounds equal. 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 No wheezing, rhonchi, rales, or stridor. No respiratory distress, speaks in full sentences. HEART: Regular rate and rhythm. No murmur heard. SKIN: Warm, dry, no rash. NEURO: Alert and oriented x3. PSYCH: Normal mood and affect Course Course Emergency Course: Patient is aware of diagnosis, understands and agrees to treatment plan. Anticipatory guidance given. Patient agrees to follow-up as directed and is aware of reasons to seek care at the emergency department. Portions of this record may have been created with voice recognition software Level of Care: Express Care Visit Vital Signs Vital signs: Vital Signs Temperature 97.2 F L 05/20/24 11:09 Pulse Rate 70 05/20/24 11:09 Respiratory Rate 16 05/20/24 11:09 Blood Pressure 120/69 05/20/24 11:09 Pulse Oximetry 100 05/20/24 11:09 Temperature 97.2 F L 05/20/24 11:09 Pulse Rate 70 05/20/24 11:09 Respiratory Rate 16 05/20/24 11:09 Blood Pressure 120/69 05/20/24 11:09 Pulse Oximetry 100 05/20/24 11:09 reviewed MDM - URI/Sore Throat MDM Narrative Medical decision making narrative: Discussed physical exam findings consistent with bronchitis. Reviewed prescriptions.. Advised supportive measures and signs/symptoms to go to the ER. Pt is appropriate for outpt treatment and f/u. Differential Diagnosis Differential diagnosis: Likely upper respiratory infection, otitis media, sinusitis, viral infection, bronchitis and influenza Discharge Plan Discharge Clinical Impression: Bronchitis Patient Disposition: Home, Self-Care Condition: Stable Instructions: Antibiotic Form, Acute Bronchitis (ED) Additional Instructions: Acute bronchitis can be contagious because it is usually caused by infection with a virus or bacteria. It is usually for a few days but you can be contagious for up to one week. Avoid crowds until you do not have a fever and symptoms are improved Take medication as directed Recommendations Flonase spray and Zyrtec (or Claritin/Kimber) over the counter Cough syrup may cause drowsiness; avoid driving or take it at night time. Tylenol 1000mg every 8 hours as needed for pain Symptomatic treatment includes: rest, fluids, and increase humidity of the air at home. Follow up with your primary care provider as needed in 1 week Go to the ER for worsening symptoms or concerns Patient Language: British Prescriptions: New methylprednisolone [Medrol (Josesito)] 4 mg tablets,dose pack See Rx Instructions .ROUTE .COMPLEX Qty: 21 0RF Rx Instructions: orally per package directions amoxicillin-pot clavulanate 875-125 mg tablet 1 tablet PO Q12H 7 Days Qty: 14 0RF No Action cholecalciferol (vitamin D3) 1,250 mcg (50,000 unit) capsule levothyroxine 150 mcg tablet 150 mcg PO DAILY Qty: 90 3RF sertraline 100 mg tablet 100 mg PO DAILY Qty: 90 3RF trazodone 100 mg tablet 100 mg PO QHS Qty: 90 3RF Follow-up/Referrals: Maurisio Parikh MD [Primary Care Provider] - Stand Alone Forms: Work/School Release IP Time of Disposition: 11:18
== END 2024-05-20 11:19 | disposition home or self-care (01) ==
PROVIDERS: Emergency Provider Nurse Practitioner Family; PCP Family Medicine
DX: J40 Bronchitis, not specified as acute or chronic (principal); E03.9 Hypothyroidism, unspecified; M19.90 Unspecified osteoarthritis, unspecified site; K21.9 Gastro-esophageal reflux disease without esophagitis; M85.80 Other specified disorders of bone density and structure, unspecified site; E66.9 Obesity, unspecified; Z68.27 Body mass index [BMI] 27.0-27.9, adult
CPT/HCPCS: 99213; G0463

== ENCOUNTER 2024-07-21 00:12 | Day surgery (SDC) | payer BC, SELFPAY ==
[2024-07-10 14:18] VITALS: BMI 27.9
--- NOTE | 2024-07-21 10:13 | WPDANESEPPF ---
Anes - Initial Pre Proc Eval Procedure: Operation Date: 07/21/24 11:30 Proposed Procedures p Colonoscopy - Stalin He MD Date/Time: 07/21/24 10:13 Surgeon: Stalin He MD Pre Op Diagnosis: fecal abn Patient Data Age: 63 Gender: F Height: 1.8 m Weight: 91 kg Allergies Allergy/AdvReac Type Severity Reaction Status Date / Time No Known Allergies Allergy Verified 07/21/24 10:13 Home Medications ?Medication ?Instructions ?Recorded ?Confirmed ?Type levothyroxine 150 mcg tablet 150 mcg PO DAILY #90 tabs 04/06/24 07/21/24 Rx sertraline 100 mg tablet 100 mg PO DAILY #90 tabs 04/06/24 07/21/24 Rx trazodone 100 mg tablet 100 mg PO QHS #90 tabs 04/06/24 07/21/24 Rx cholecalciferol (vitamin D3) 1,250 1,250 mcg PO WEEKLY 05/20/24 07/21/24 History mcg (50,000 unit) capsule Patient hx anesthesia problems: none Family hx anesthesia problems: none Results Review: All pre-operative results and documents have been reviewed as part of the pre-operative evaluation. [facility] Past Medical History Medical History Osteopenia Contusion of left patella Obesity Varicose veins of right lower extremity without ulcer or inflammation Vitamin D deficiency Hypothyroidism (acquired) Unspecified osteoarthritis, unspecified site Depression GERD without esophagitis Anxiety Insomnia Surgical History Surgical History History of vaginal hysterectomy (~2001) 2001 Family History Family History Father Family history of malignant neoplasm of brain, Onset Age: 72 Social History Social History Smoking status: Never smoker Tobacco type: cigarettes Second hand tobacco smoke exposure: No Alcohol intake: never Alcohol use details: consumes 2 beers or glasses of wine occasionally Substance use: never Substance use type: does not use Gender identity (if verbalized by the patient): Female Anes - Eval Final PreProcedure Day of Procedure 07/21/24 10:13 Patient weight: overweight Heart: regular rate and rhythm Lungs: clear to auscultation Airway: Mallampati scale class II Neurological: alert and oriented Last oral intake: >/= 8 hours ASA classification: II Emergent: no Anesthetic plan: proceed Anesthesia type and monitoring: general GIVS and standard monitoring Results Review: All pre-operative results and documents have been reviewed as part of the pre-operative evaluation. Informed Consent: The patient's anesthetic plan and its attendant risks and benefits were discussed with the patient/family/POA. Questions were solicited and answers provided to the satisfaction of the patient/family/POA.
[2024-07-21 10:14] VITALS: BP 134/70; PULSE 61; RESP 18; TEMP 36; O2SAT 98
[2024-07-21] MEDS: LACTATED RINGERS 1,000 ML 150 ML IV CONT (10:23)
--- NOTE | 2024-07-21 10:40 | PM.HPGS ---
History of Present Illness History of Present Illness Consent: Risks, benefits, and alternatives have been discussed and questions answered. Patient agrees to proceed with procedure. Chief complaint: fecal abn Narrative: Rebeca Ivory is a 63 year old female here for first colonoscopy, + cologuard Review of Systems Review of Systems: All systems reviewed & are unremarkable except as noted in HPI and below PMFSH Past Medical History Medical History Osteopenia Contusion of left patella Obesity Varicose veins of right lower extremity without ulcer or inflammation Vitamin D deficiency Hypothyroidism (acquired) Unspecified osteoarthritis, unspecified site Depression GERD without esophagitis Anxiety Insomnia Surgical History Surgical History History of vaginal hysterectomy (~2001) 2001 Family History Family History Father Family history of malignant neoplasm of brain, Onset Age: 72 Social History Social History Smoking status: Never smoker Tobacco type: cigarettes Second hand tobacco smoke exposure: No Alcohol intake: never Alcohol use details: consumes 2 beers or glasses of wine occasionally Substance use: never Substance use type: does not use Gender identity (if verbalized by the patient): Female Meds Home Medications and Allergies Home Medications ?Medication ?Instructions ?Recorded ?Confirmed ?Type levothyroxine 150 mcg tablet 150 mcg PO DAILY #90 tabs 04/06/24 07/21/24 Rx sertraline 100 mg tablet 100 mg PO DAILY #90 tabs 04/06/24 07/21/24 Rx trazodone 100 mg tablet 100 mg PO QHS #90 tabs 04/06/24 07/21/24 Rx cholecalciferol (vitamin D3) 1,250 1,250 mcg PO WEEKLY 05/20/24 07/21/24 History mcg (50,000 unit) capsule Allergies Allergy/AdvReac Type Severity Reaction Status Date / Time No Known Allergies Allergy Verified 07/21/24 10:13 Vital Signs Vital Signs - 24 hr 07/21/24 10:14 Temperature 96.8 F L Pulse Rate 61 Respiratory Rate 18 Blood Pressure 134/70 Pulse Oximetry 98 Exam Const: General: comfortable and no acute distress HENMT: Face/Nose/Sinus: Normal nares present Eyes: General: appearance normal, both eyes and all related structures Neck: Neck: no JVD Resp: Auscultation: clear to auscultation bilaterally Cardio: Rate: regular rate Rhythm: regular rhythm GI: Inspection: non-distended GI Palp: Yes Soft to palpation Skin: General skin exam: normal color Neuro: Speech: normal speech Extrem: General: normal to inspection Psych: Mental Status: mental status grossly normal Assessment and Plan Assessment and plan (1) Positive colorectal cancer screening using Cologuard test: Code(s): R19.5 - Other fecal abnormalities Status: Acute Assessment and Plan: colonoscopy
[2024-07-21 10:58] VITALS: BP 113/71; PULSE 65; RESP 24; O2SAT 100
[2024-07-21 11:08] VITALS: BP 113/71; PULSE 58; RESP 24; O2SAT 100
[2024-07-21 11:18] VITALS: BP 112/70; PULSE 52; RESP 18; O2SAT 100
== END 2024-07-21 11:26 | disposition home or self-care (01) ==
PROVIDERS: PCP Family Medicine; Referring Provider Family Medicine; Visit Provider Internal Medicine Gastroenterology
PROC: 0DJD8ZZ Inspection of Lower Intestinal Tract, Via Natural or Artificial Opening Endoscopic (ICD-10-PCS; CPT 45378; principal; 2024-07-21 11:30)
DX: R19.5 Other fecal abnormalities (principal); K63.5 Polyp of colon; K57.30 Diverticulosis of large intestine without perforation or abscess without bleeding; K64.8 Other hemorrhoids
CPT/HCPCS: 45385; 88305; J2704; J7120